=== PATIENT | male | born 1940 | race Caucasian/White ===

== ENCOUNTER 2016-10-31 15:00 | Outpatient (RCR) | payer MEDICARE, BC | END 2016-11-08 | disposition home or self-care (01) | LOC: COL.CR | DX: Z48.812 Encounter for surgical aftercare following surgery on the circulatory system (principal); Z95.5 Presence of coronary angioplasty implant and graft ==

== ENCOUNTER 2017-02-01 14:59 | Outpatient (RCR) | payer MEDICARE, BC | END 2017-02-19 | disposition home or self-care (01) | LOC: COL.CR | DX: I21.3 ST elevation (STEMI) myocardial infarction of unspecified site (principal); Z95.5 Presence of coronary angioplasty implant and graft ==

== ENCOUNTER 2020-12-31 07:02 | Day surgery (SDC) | payer MEDICARE, BC ==
[~2020-12-31] VITALS: Ht 170.2 cm; Wt 96.1 kg
[2020-12-31] VITALS (12 sets, daily range): BP systolic 94–137; BP diastolic 42–78; PULSE 54–67; TEMP 97.2–98
[2020-12-31] MEDS ORDERED: PLAVIX 75MG TAB75 MG PO (07:56)
[2020-12-31] MEDS ORDERED: FLOMAX 0.40.4 MG/CAP PO (07:56)
[2020-12-31] MEDS ORDERED: ASPIRIN E.C. 8181 MG PO (07:57)
[2020-12-31] MEDS ORDERED: TOPROL XL 50MG50 MG PO (07:57)
[2020-12-31] MEDS ORDERED: LEVOXYL0.075 MG PO (07:57)
[2020-12-31] MEDS ORDERED: IMDUR 60MG60 MG/TAB PO (07:58)
[2020-12-31] MEDS ORDERED: NORVASC2.5 MG PO (07:58)
[2020-12-31] MEDS ORDERED: GLUCOPHAGE500 MG/TAB PO (07:58)
[2020-12-31] MEDS ORDERED: COZAAR100 MG PO (07:59)
[2020-12-31] MEDS ORDERED: LIPITOR 40MG TA40 MG PO (07:59)
[2020-12-31] MEDS ORDERED: ALAVERT10 M1 PO (08:00)
--- NOTE | 2020-12-31 09:45 | NUR ---
PATIENT ADMITED INTO ROOM 323 POST OP TURP. RODRIGUEZ TO DD WITH CBI INFUSING AT SLOW TO MOD RATE. URINE IS CLEAR YELLOW. IV FLUIDS INFUSING INTO RIGHT HAND. NO C/O PAIN OR NAUSEA. WATER AT BEDSIDE. HEAD TO TOE ASSESSMENT WNL. NOTED HEART MURMUR DURING ASSESSMENT WHICH IS NOT NEW. PATIENT HAS HX OF AORTIC STENOSIS WITH AN EF OF 55-60%. ORIENTED TO ROOM. CALL LIGHT IN REACH. NOW AT BEDSIDE.
--- NOTE | 2020-12-31 12:00 | NUR ---
PATIENT C/O FEELING THE URGE TO VOID. RODRIGUEZ TO DD WITH CBI INFUSING. URINE IS CLEAR YELLOW AND DRAINING WELL. NOTED RODRIGUEZ CATH TO TENTION WITH OCCLUSIVE TAPE TO LEFT INNER LEG. PATIENT REQUESTING TO HAVE TENTION TAPE REMOVED. NOTIFIED , OCCLUSIVE TAPE REMOVED AND STAT LOCK INPLACE. PATIENT REPORTS HE FEELS BETTER AND DENIES NEED FOR ORAL LEVSIN AT THIS TIME. WILL CONTINUE TO MONITOR.
--- NOTE | 2020-12-31 15:00 | NUR ---
PATIENT DOING WELL. READ UP IN BED WITH NO NEEDS. URINE IS RED, CBI SLIGHTLY INCREASED. PATIENT DENIES ANY COMPLAINTS. CALL LIGHT IN REACH.
--- NOTE | 2020-12-31 20:43 | NUR ---
Patient assessed. Denies pain and discomfort. Peripheral IV to right hand with fluids running per orders. Heart murmur present. CBI running, moderate. [place] urine output, not clots. Tolerating well. Voices no questions, needs, or concerns at this time. Resting in bed with call light within reach.
[2021-01-01 02:52] VITALS: BP 135/50; PULSE 57; TEMP 98.3
--- NOTE | 2021-01-01 05:41 | NUR ---
Patient has denied having pain and discomfort this shift. CBI continues to run, slow, with clear/light pink output. Voices no questions, needs, or concerns at this time. Resting in bed with call light within reach.
[2021-01-01 07:46] VITALS: BP 138/55; PULSE 62; TEMP 97.3
--- NOTE | 2021-01-01 08:00 | NUR ---
PATIENT IS A&O. VSS. DENIES PAIN OR NAUSEA. PATIENT REPORTS 2 BLADDER SPASMS AND LEAKED AROUND CATH SITE WHILE TRYING TO HAVE A BM EARLY THIS AM. PATIENT CLEANED UP. RODRIGUEZ TO DD WITH CBI INFUSING SLOW. URINE IS PINK, NO CLOTS. IV FLUIDS INFUSING INTO RIGHT HAND IV VIA PUMP. NO C/O N/V. BREAKFAST TRAY AT BEDSIDE. AM MEDS GIVEN. HEAD TO TOE ASSESSMENT COMPLETE. NO OTHER NEEDS AT THIS TIME. CALL LIGHT IN REACH.
--- NOTE | 2021-01-01 09:16 | NUR ---
SW met with the patient to discuss discharge plan. The patient lives in [place] with his , Teri (ph#[phone]). He reports independence with ADLs and does not have any DME. The patient's PCP is Dr. Arian Best and he receives his medications from [facility]. He reports no difficulties obtaining his meds. The patient does not have a DPOA-HC in EMR, but he states that he does have one completed and that it designates his . The patient plans to return home with his upon discharge. No additional needs at this time. *Discharge plan: home with *
--- NOTE | 2021-01-01 09:20 | NUR ---
GAVE PATIENT STATUS UPDATE TO OVER THE PHONE. P&P PER ORDERS. PATIENT TOLERATED WELL. STARTED 6 CUP ROUTINE.
[2021-01-01 11:07] VITALS: BP 125/48; PULSE 55; TEMP 97.6
--- NOTE | 2021-01-01 13:05 | NUR ---
PATIENT DISCHARGING HOME VIA WC TO PERSONAL VEHICLE WITH . GAVE DISCHARGE INSTRUCTIONS & DISCUSSED F/U APT. ANSWERED QUESTIONS. DC'D RIGHT HAND IV, COVERED SITE WITH GAUZE & COBAN. PATIENT IS DRESSED, PACKED & DISCHARGED.
== END 2021-01-01 13:05 | disposition home or self-care (01) ==
LOC: SDCO 07:02 → SURG 07:02 → SDCO 08:30 → SURG 09:45 → SDCO 01-01 13:05
DX: N40.1 Benign prostatic hyperplasia with lower urinary tract symptoms (principal); N13.8 Other obstructive and reflux uropathy; I25.10 Atherosclerotic heart disease of native coronary artery without angina pectoris; R39.12 Poor urinary stream; E11.9 Type 2 diabetes mellitus without complications; I10 Essential (primary) hypertension; E66.9 Obesity, unspecified; Z85.828 Personal history of other malignant neoplasm of skin; Z20.822 Contact with and (suspected) exposure to COVID-19; Z79.82 Long term (current) use of aspirin; Z79.899 Other long term (current) drug therapy; Z79.02 Long term (current) use of antithrombotics/antiplatelets; Z79.84 Long term (current) use of oral hypoglycemic drugs
CPT/HCPCS: OP; J0690; J2405; J2704; J3010; J3480; J7120

== ENCOUNTER 2021-08-29 10:10 | Emergency (ER) | payer MEDICARE, BC ==
[~2021-08-29] VITALS: Ht 170.2 cm; Wt 87.7 kg
[~2021-08-29 10:10] MED LIST: ALAVERT10 M1 PO; ASPIRIN E.C. 8181 MG PO; COZAAR100 MG PO; FLOMAX 0.40.4 MG/CAP PO; GLUCOPHAGE500 MG/TAB PO; IMDUR 60MG60 MG/TAB PO; LEVOXYL0.075 MG PO; LIPITOR 40MG TA40 MG PO; NORVASC2.5 MG PO; PLAVIX 75MG TAB75 MG PO; TOPROL XL 50MG50 MG PO
[2021-08-29 10:18] VITALS: TEMP 98
[2021-08-29 10:45] LABS: BASO # 0.1 K/mm3 (0.0-0.2); BASO % 0.8 % (0.0-2.0); EOS # 0.1 K/mm3 (0.0-0.7); EOS % 1.3 % (0.0-4.0); GRAN # 6.8 K/mm3 (1.4-6.5); GRAN % 75.1 % (42.2-75.2); HEMATOCRIT 41.8 % (42.0-52.0); HEMOGLOBIN 14.2 g/dl (13.5-18.0); LYMPH # 1.3 K/mm3 (1.2-3.4); LYMPH % 14.5 % (20.0-51.0); MEAN CELL VOLUME 97 fl (80.0-100.0); MEAN CORPUSCULAR HEMOGLOBIN 33 pg (27-31); MEAN CORPUSCULAR HGB CONC 34 g/dl (33.0-37.0); MEAN PLATELET VOLUME 9.8 fl (7.4-10.4); MONO # 0.7 K/mm3 (0.1-0.6); MONO % 7.9 % (1.7-9.3); PLATELET COUNT 176 K/mm3 (130-400); RED BLOOD COUNT 4.33 M/mm3 (4.20-5.60); REDCELL DISTRIBUTION WIDTH-CV 15.6 % (11.5-14.5)
[2021-08-29 11:07] LABS: ALBUMIN 3.7 gm/dL (3.4-4.8); BILIRUBIN,TOTAL 1.6 mg/dL (0.2-1.2); C-REACTIVE PROTEIN 4.45 mg/dL (0.00-0.50); CALCIUM 9.3 mg/dL (8.4-10.2); CREATININE, serum 0.93 mg/dL (0.72-1.25); POTASSIUM 3.9 mmol/L (3.5-4.5); TOTAL PROTEIN 6.8 gm/dL (6.2-8.1)
[2021-08-29 11:09] LABS: INR 1.3 (0.8-3.0); PROTHROMBIN TIME 14.9 SECONDS (9.7-12.8)
[2021-08-29 13:27] VITALS: BP 141/87; PULSE 80
== END 2021-08-29 13:28 | disposition home or self-care (01) ==
LOC: COL.ER 10:10
PROVIDERS: Family Medicine
DX: M62.81 Muscle weakness (generalized) (principal)
CPT/HCPCS: Q9967

== ENCOUNTER 2021-09-22 12:28 | Outpatient (RCR) | payer MEDICARE, BC | END 2021-09-23 | disposition home or self-care (01) | LOC: COL.CR | DX: Z48.812 Encounter for surgical aftercare following surgery on the circulatory system (principal); Z95.2 Presence of prosthetic heart valve ==

== ENCOUNTER 2021-09-29 11:19 | Emergency (ER) | payer MEDICARE, BC ==
[~2021-09-29] VITALS: Ht 170.2 cm; Wt 89.5 kg
[2021-09-29 11:35] VITALS: TEMP 97.7
[2021-09-29 13:42] LABS: BASO # 0.1 K/mm3 (0.0-0.2); BASO % 0.6 % (0.0-2.0); EOS # 0.1 K/mm3 (0.0-0.7); EOS % 0.9 % (0.0-4.0); GRAN # 10.6 K/mm3 (1.4-6.5); GRAN % 76.4 % (42.2-75.2); HEMATOCRIT 42.1 % (42.0-52.0); HEMOGLOBIN 14.2 g/dl (13.5-18.0); LYMPH # 2.1 K/mm3 (1.2-3.4); LYMPH % 15.5 % (20.0-51.0); MEAN CELL VOLUME 98 fl (80.0-100.0); MEAN CORPUSCULAR HEMOGLOBIN 33 pg (27-31); MEAN CORPUSCULAR HGB CONC 34 g/dl (33.0-37.0); MEAN PLATELET VOLUME 9.7 fl (7.4-10.4); MONO # 0.9 K/mm3 (0.1-0.6); MONO % 6.2 % (1.7-9.3); PLATELET COUNT 242 K/mm3 (130-400); REDCELL DISTRIBUTION WIDTH-CV 15.9 % (11.5-14.5)
[2021-09-29 13:47] LABS: INR 1.2 (0.8-3.0); PROTHROMBIN TIME 14.2 SECONDS (9.7-12.8)
[2021-09-29 14:01] LABS: ALBUMIN 3.9 gm/dL (3.4-4.8); BILIRUBIN,TOTAL 0.9 mg/dL (0.2-1.2); CALCIUM 9.5 mg/dL (8.4-10.2); CREATININE, serum 0.82 mg/dL (0.72-1.25); POTASSIUM 4.2 mmol/L (3.5-4.5); TOTAL PROTEIN 7.3 gm/dL (6.2-8.1)
[2021-09-29 16:00] VITALS: BP 117/65; PULSE 83
== END 2021-09-29 16:00 | disposition short-term general hospital (02) ==
LOC: COL.ER 11:19
PROVIDERS: Nurse Practitioner Primary Care
DX: S06.6X0A Traumatic subarachnoid hemorrhage without loss of consciousness, initial encounter (principal); W01.198A Fall on same level from slipping, tripping and stumbling with subsequent striking against other object, initial encounter; Z79.02 Long term (current) use of antithrombotics/antiplatelets; Z79.82 Long term (current) use of aspirin
CPT/HCPCS: J1953; J7050

== ENCOUNTER 2021-09-29 12:14 | Outpatient (RCR) | payer MEDICARE, BC | END 2021-10-24 | disposition home or self-care (01) | LOC: COL.CR | DX: Z48.812 Encounter for surgical aftercare following surgery on the circulatory system (principal); Z95.2 Presence of prosthetic heart valve ==

== ENCOUNTER → 2021-11-08 | Outpatient (CLI) | payer MEDICARE, BC | LOC: COL.RAD 10-21 11:30 | DX: I60.9 Nontraumatic subarachnoid hemorrhage, unspecified (principal); G31.9 Degenerative disease of nervous system, unspecified ==

== ENCOUNTER → 2021-11-24 | Outpatient (RCR) | payer MEDICARE, BC | END | disposition home or self-care (01) | LOC: COL.CR | DX: Z48.812 Encounter for surgical aftercare following surgery on the circulatory system (principal); Z95.2 Presence of prosthetic heart valve ==

== ENCOUNTER 2022-01-17 13:12 | Outpatient (RCR) | payer MEDICARE, BC | END 2022-01-19 12:14 | disposition home or self-care (01) | LOC: COL.CR 13:12 | DX: Z48.812 Encounter for surgical aftercare following surgery on the circulatory system (principal); Z95.2 Presence of prosthetic heart valve ==